=== PATIENT | female | born 1990 | race Two or more races ===

== ENCOUNTER 2022-12-16 16:07 | Emergency (ER) | payer OTHER ==
[~2022-12-16] VITALS: Ht 167.6 cm; Wt 75.7 kg
== END 2022-12-16 18:38 | disposition home or self-care (01) ==
LOC: ER 16:07
DX: S92.912A Unspecified fracture of left toe(s), initial encounter for closed fracture (principal); W22.8XXA Striking against or struck by other objects, initial encounter; Y93.9 Activity, unspecified; Y92.009 Unspecified place in unspecified non-institutional (private) residence as the place of occurrence of the external cause; Y99.9 Unspecified external cause status; Z88.2 Allergy status to sulfonamides; Z88.1 Allergy status to other antibiotic agents

== ENCOUNTER 2023-11-16 22:03 | Emergency (ER) | payer OTHER ==
[~2023-11-16] VITALS: Ht 165.1 cm; Wt 77.1 kg
== END 2023-11-16 22:41 | disposition home or self-care (01) ==
LOC: ER 22:03
DX: H10.30 Unspecified acute conjunctivitis, unspecified eye (principal); Z88.2 Allergy status to sulfonamides